=== PATIENT | male | born 1985 | race Caucasian/White ===

== ENCOUNTER 2016-12-16 08:31 | Emergency (ER) | payer SELFPAY ==
[~2016-12-16] VITALS: Ht 193 cm; Wt 85.7 kg
[~2016-12-16 08:31] MED LIST: ALPRAZOLAM0.25 M2 PO; CIPROFLOXACIN H10 ML LEFT EYE; CLINDAMYCIN HC300 MG PO; FLEXERIL10 MG PO; OXYCODONE HCL10 MG PO
[2016-12-16 09:23] LABS: INFLUENZA A VIRAL ANTIGEN NEGATIVE; INFLUENZA B VIRAL ANTIGEN NEGATIVE
[2016-12-16] MEDS ORDERED: ZOFRAN ODT4 MG PO (10:09)
[2016-12-16] MEDS ORDERED: FLEXERIL10 MG PO (10:09)
[2016-12-16 10:13] VITALS: BP 119/84
== END 2016-12-16 10:33 | disposition home or self-care (01) ==
LOC: EME 08:31
PROVIDERS: Nurse Practitioner Family
DX: B34.9 Viral infection, unspecified (principal); J02.8 Acute pharyngitis due to other specified organisms; R11.2 Nausea with vomiting, unspecified; M79.1 Myalgia; Z87.891 Personal history of nicotine dependence; Z88.6 Allergy status to analgesic agent
CPT/HCPCS: 71020; 87502; 87651 90; 99281; 99284